=== PATIENT | male | born 1970 | race Caucasian/White ===

== ENCOUNTER → 2018-11-25 | Outpatient (CLI) | payer BC ==
--- NOTE | 2018-11-25 13:25 | DIREP ---
PROCEDURE:US DUPLEX EXTREM VEINS UNILATER/LIMITED-LT COMPARISON:None. INDICATIONS:LEFT LEG PAIN, R/O DVT TECHNIQUE:The left lower extremity was evaluated utilizing serrano scale images with segmental compression, color Doppler, and spectral Doppler with respiratory variation and augmentation. FINDINGS: Common femoral vein:Patent Superficial femoral vein:Patent Saphenofemoral junction:Patent Popliteal vein:Patent Posterior tibial vein:Patent Peroneal vein:Patent CONCLUSION: 1. The visualized venous segments are negative for deep venous thrombosis. Dictated by: Kendall Lau M.D. on 11/25/2018 at 01:02 PM
== END | disposition home or self-care (01) ==
LOC: RAD 12:06
DX: M79.605 Pain in left leg (principal)
CPT/HCPCS: 93971